=== PATIENT | male | born 1990 | race Two or more races ===

== ENCOUNTER 2018-09-09 09:26 | Emergency (ER) | payer SELFPAY ==
[2018-09-09] MEDS ORDERED: ONDANSETRON 4 MG/2 ML VIAL ONE (09:47)
[2018-09-09] MEDS ORDERED: HYDROmorphONE/DILAUDID 1 MG/ML INJ ONE (09:47)
[2018-09-09] MEDS ORDERED: NS 1,000 ML IV ONE (09:52)
[2018-09-09] MEDS ORDERED: ONDANSETRON 4 MG/2 ML VIAL IVP ONE ×2 (09:57→12:24)
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
[2018-09-09] MEDS ORDERED: KETOROLAC 30 MG/1 ML SDV IVP ONE (10:11)
[2018-09-09] MEDS ORDERED: HYDROmorphONE/DILAUDID 2 MG/ML INJ IVP ONE ×2 (10:12→11:37)
[2018-09-09 11:03] LABS: PLATELET COUNT 386 10^3/uL (150-400)
[2018-09-09] MEDS ORDERED: LIDOCAINE 4%/MENTHOL 1% PATCH TD ONE (11:34)
[2018-09-09] MEDS ORDERED: CYCLOBENZAPRINE 10 MG TAB PO ONE (11:37)
[2018-09-09 13:08] VITALS: BP 108/72
[2018-09-09] MEDS ORDERED: PATCH REMOVAL 1 EA PATCH TD SCH (21:00)
== END 2018-09-09 13:06 | disposition home or self-care (01) ==
DX: M54.6 Pain in thoracic spine (principal); E86.9 Volume depletion, unspecified
CPT/HCPCS: 96374; J1170; J1885; J2405